=== PATIENT | male | born 1985 | race African-American/Black ===

== ENCOUNTER 2017-06-29 23:27 | Emergency (ER) | payer BC | END 2017-06-30 00:01 | disposition home or self-care (01) | LOC: ER 06-30 00:01 | DX: T78.40XA Allergy, unspecified, initial encounter (principal); K08.409 Partial loss of teeth, unspecified cause, unspecified class; X58.XXXA Exposure to other specified factors, initial encounter | CPT/HCPCS: 99283 ==

== ENCOUNTER 2020-01-29 21:46 | Emergency (ER) | payer BC ==
[~2020-01-29] VITALS: Ht 170.2 cm; Wt 81.0 kg
[~2020-01-29 21:46] MED LIST: KETO5DRO EACHEYE
[2020-01-29 22:15] VITALS: BP 149/103
[2020-01-29] MEDS ORDERED: PROCHLORPERAZINE 10 MG/2 ML VIAL. IV ONE ×2 (23:00→23:30)
[2020-01-29] MEDS ORDERED: KETOROLAC 60 MG/2 ML VIAL. IM ONE (23:00)
[2020-01-29] MEDS ORDERED: KETOROLAC 30 MG/ML VIAL. IVP ONE (23:30)
[2020-01-29] MEDS ORDERED: diphenhydrAMINE 50 MG/ML VIAL IVP ONE (23:30)
--- NOTE | 2020-01-29 23:32 | PHYS DOC ---
Past Medical History Past Medical History: No Pertinent History, Migraines Past Surgical History: Other Additional Past Surgical Histo: WISDOM TOOTH EXTRACTION Smoking Status: Never Smoker Alcohol Use: Occasionally Drug Use: None General Adult EDM: Chief Complaint: HEADACHE HPI: HPI: Patient is a 34 year old male past medical history of migraine headaches presents with a chief complaint of a migraine headache. Patient states current headache is in its typical location left retro-orbital. Patient has associated nausea and vomiting. Patient states onset of symptoms this a.m. progressively worse throughout the day. Patient is taken [id number] NSAIDs with no relief. Patient was previously prescribed migraine medications but has currently run out and does not know the name of the medications. On exam patient looks uncomfortable. He is in no acute distress. He is neurovascularly intact. History obtained from the patient patient arrived by private vehicle he ambulated into the ER with steady gait. Review of Systems: Review of Systems: Constitutional: Denies fever or chills. [] Eyes: Denies change in visual acuity. [] HENT: Denies nasal congestion or sore throat. [] Respiratory: Denies cough or shortness of breath. [] Cardiovascular: Denies chest pain or edema. [] GI: Denies abdominal pain, , bloody stools or diarrhea. [Positive nausea, vomiting] : Denies dysuria. [] Musculoskeletal: Denies back pain or joint pain. [] Integument: Denies rash. [] Neurologic: Positive headache, denies focal weakness or sensory changes. [] Endocrine: Denies polyuria or polydipsia. [] Lymphatic: Denies swollen glands. [] Psychiatric: Denies depression or anxiety. [] Heart Score: Risk Factors: Risk Factors: DM, Current or recent (<one month) smoker, HTN, HLP, family history of CAD, obesity. Risk Scores: Score 0 - 3: 2.5% MACE over next 6 weeks - Discharge Home Score 4 - 6: 20.3% MACE over next 6 weeks - Admit for Clinical Observation Score 7 - 10: 72.7% MACE over next 6 weeks - Early Invasive Strategies Current Medications: Current Medications Medications (Trade) Dose Ordered Sig/Anastasia Start Time Stop Time Status Last Admin Dose Admin Diphenhydramine HCl (Benadryl) 50 mg 1X ONCE 01/29/20 23:30 01/29/20 23:31 01/29/20 23:17 50 MG Ketorolac Tromethamine (Toradol 30mg Vial) 30 mg 1X ONCE 01/29/20 23:30 01/29/20 23:31 01/29/20 23:19 30 MG Ketorolac Tromethamine (Toradol Im) 60 mg 1X ONCE 01/29/20 23:00 01/29/20 23:07 DC Prochlorperazine Edisylate (Compazine) 10 mg 1X ONCE 01/29/20 23:00 01/29/20 23:07 DC Allergies: Allergies: Allergies Coded Allergies Type Severity Reaction Last Updated Verified No Known Drug Allergies 06/29/17 No Physical Exam: PE: Constitutional: Well developed, well nourished, no acute distress, non-toxic appearance. [] HENT: Normocephalic, atraumatic, bilateral external ears normal, oropharynx moist, no oral exudates, nose normal. [] Eyes: PERRLA, EOMI, conjunctiva normal, no discharge. [] Neck: Normal range of motion, no tenderness, supple, no stridor. [] Cardiovascular:Heart rate regular rhythm, no murmur [] Lungs & Thorax: Bilateral breath sounds clear to auscultation [] Abdomen: Bowel sounds normal, soft, no tenderness, no masses, no pulsatile masses. [] Skin: Warm, dry, no erythema, no rash. [] Back: No tenderness, no CVA tenderness. [] Extremities: No tenderness, no cyanosis, no clubbing, ROM intact, no edema. [] Neurologic: Alert and oriented X 3, normal motor function, normal sensory function, no focal deficits noted. [] Psychologic: Affect normal, judgement normal, mood normal. [] Current Patient Data: Vital Signs: Vital Signs Date Time Temp Pulse Resp B/P (MAP) Pulse Ox O2 Delivery O2 Flow Rate FiO2 01/29/20 22:15 98.8 79 18 149/103 (118) 97 Room Air 98.8 EKG: EKG: [] Radiology/Procedures: Radiology/Procedures: [] Course & Med Decision Making: Course & Med Decision Making Pertinent Labs and Imaging studies reviewed. (See chart for details) [] Patient was evaluated for chief complaint. Based upon history of present illness and physical exam no emergent lab or radiologic imaging ordered. Treatment included IV fluids Toradol Compazine and Benadryl. re-evaluation [id number] nursing informed me that patients headeache has resolved. [place] Disclaimer: [place] Disclaimer: This electronic medical record was generated, in whole or in part, using a voice recognition dictation system. Departure Departure Impression: Primary Impression: Migraine headache Disposition: 01 DC HOME SELF CARE/HOMELESS Condition: STABLE Referrals: AURELIA MCDONOUGH DO (PCP) Patient Instructions: Migraine Headache NIK MELENDREZ DO Jan 29, 2020 23:32
[2020-01-29] MEDS ORDERED: IV NORMAL SALINE 1000ML BAG 1,000 ML IV ONE (23:45)
== END 2020-01-30 00:11 | disposition home or self-care (01) ==
LOC: ER 21:46
DX: G43.909 Migraine, unspecified, not intractable, without status migrainosus (principal)
CPT/HCPCS: 96361; 96374; 96375; 99284; J0780; J1200; J1885; J7030